=== PATIENT | female | born 1970 | race Caucasian/White ===

== ENCOUNTER 2016-09-29 13:50 | Emergency (ER) | payer OTHER ==
[~2016-09-29] VITALS: Ht 167.6 cm; Wt 81.2 kg
[~2016-09-29 13:50] MED LIST: BENZTROPINE MESY1 MG PO; CITALOPRAM HYDR40 M1 PO; CLINDAMYCIN HC300 MG PO; HALOPERIDOL5 MG PO; LATUDA20 M1 PO; LEVOTHYROXINE0.05 M1 PO; LORAZEPAM1 MG PO; VENLAFAXINE HC100 MG PO; VENLAFAXINE HCL50 MG PO
[2016-09-29 16:06] VITALS: BP 140/86
== END 2016-09-29 16:06 | disposition home or self-care (01) ==
LOC: ED 13:50
DX: S61.531A Puncture wound without foreign body of right wrist, initial encounter (principal); W46.1XXA Contact with contaminated hypodermic needle, initial encounter; Y93.89 Activity, other specified; Y92.59 Other trade areas as the place of occurrence of the external cause; Y99.8 Other external cause status
CPT/HCPCS: 90715